=== PATIENT | female | born 1990 | race Hispanic/Latino ===

== ENCOUNTER 2022-06-08 11:17 | Emergency (ER) | payer OTHER, SELFPAY ==
[2022-06-08 11:29] VITALS: BP 115/49; PULSE 60; RESP 12; TEMP 36.7; O2SAT 98
--- NOTE | 2022-06-08 11:56 | ED.DENTAL ---
HPI - Dental/Oral General Chief complaint: Dental/Oral Stated complaint: jaw pain Time Seen by Provider: 06/08/22 11:35 Source: patient Mode of arrival: ambulatory Limitations: no limitations History of Present Illness HPI Narrative: Adriana is a 31-year-old female patient presenting to the clinic today with complaints of left upper dental pain. States that has been going on for a while however over the last few days she developed a bump to her cheek and thinks this may be infected. She denies any fever or chills Related Data Allergies Allergy/AdvReac Type Severity Reaction Status Date / Time No Known Allergies Allergy Verified 06/08/22 11:24 Review of Systems Review of Systems: Pertinent positives per HPI. Patient denies any fever, chills, rash, headache, visual changes, dizziness, cough, runny nose, sore throat, shortness of breath, chest pain, palpitations, nausea, vomiting, diarrhea, constipation, abdominal pain, or any urinary issues. PMFSH Comments At the time of my signature, I reviewed and agree with the nursing past medical, surgical, social, and family history. There is no relevant family history pertinent to the patient complaint. Exam Narrative: General: Well-developed, well nourished, in no apparent distress Head: Normocephalic, atraumatic Eyes: Pupils equally round and reactive to light bilaterally, EOM intact, sclera and conjunctive clear, no discharge, lids normal Ears: TMs intact and clear, ear canals clear, no drainage, grossly hearing normal. Nose: Nares patent, no discharge, no inflammation, no sinus tenderness. Mouth: Oropharynx without lesions or masses, cavity to the left upper 1st molar that appears to be infected-mild swelling noted to the left upper cheek with tenderness to palpation Neck: Supple, trachea midline, no enlargement of anterior or posterior cervical nodes, no thyroid masses or goiter palpable. Cardio: Regular rate and rhythm, s1 and s2 normal, no murmur appreciated. Resp: Clear to auscultation bilaterally anteriorly and posteriorly, no rhonchi, rales, wheezing or rubs Course Course Emergency Course: Portions of this record may have been created with voice recognition software. Level of Care: Express Care Visit Vital Signs Vital signs: Vital Signs Temperature 36.7 C 06/08/22 11:29 Pulse Rate 60 06/08/22 11:29 Respiratory Rate 12 06/08/22 11:29 Blood Pressure 115/49 L 06/08/22 11:29 Pulse Oximetry 98 06/08/22 11:29 Oxygen Delivery Room Air 06/08/22 11:29 Temperature 36.7 C 06/08/22 11:29 Pulse Rate 60 06/08/22 11:29 Respiratory Rate 12 06/08/22 11:29 Blood Pressure 115/49 L 06/08/22 11:29 Pulse Oximetry 98 06/08/22 11:29 Oxygen Delivery Room Air 06/08/22 11:29 Vital signs reviewed MDM - Dental/Oral MDM Narrative Medical decision making narrative: At the time of visit patient is resting comfortably on the exam table. I suspect the patient has a dental abscess. Will send in prescription for some amoxicillin supportive measures were discussed with the patient and she voiced understanding discharge instructions and agrees to treatment plan. Differential Diagnosis Differential diagnosis: Likely gingival abscess, dental caries, toothache and dental abscess Discharge Plan Discharge Clinical Impression: Dental abscess Patient Disposition: Home, Self-Care Condition: Stable Instructions: Antibiotic Form, Dental Abscess (ED) Additional Instructions: Take amoxicillin as prescribed Take Tylenol/Motrin as needed for pain May apply heat or ice to the affected area to help alleviate pain. Follow-up with the dentist as soon as possible Prescriptions: New amoxicillin 500 mg tablet 500 mg PO Q8H 10 Days Qty: 30 0RF Follow-up/Referrals: Shabana,MARCELA Obregon [Primary Care Provider] - Stand Alone Forms: Work/School Release IP Time of Disposition: 11:57 Quality NIHSS Nursing Documentation ED NIHSS
== END 2022-06-08 12:03 | disposition home or self-care (01) ==
PROVIDERS: Emergency Provider Nurse Practitioner Family; PCP Registered Nurse
DX: K04.7 Periapical abscess without sinus (principal)
CPT/HCPCS: 99213; G0463